=== PATIENT | female | born 1950 | race Caucasian/White ===

== ENCOUNTER → 2017-11-16 | Day surgery (SDC) | payer OTHER, BC ==
[2017-11-08 13:10] VITALS: BMI 51.0
[~2017-11-16] VITALS: Ht 167.6 cm; Wt 147.7 kg
[~2017-11-16] MED LIST: AMIT10TA6 PO; ATV/1 PO; FENTANYL CITRATE INJ 50 MCG/1 ML 2 ML VIAL ONE; KETAMINE HCL INJ 50 MG/ML 10 ML VIAL ONE; LIDOCAINE HCL 2% 2 ML VIAL (20MG/ML) ONE; LOSA50TA6 PO; LPT10 PO; MIDAZOLAM HCL 1 MG/ML 2ML VIAL ONE; ONDANSETRON INJ 2 MG/ML 2 ML VIAL IV PRN; PANT40TA PO; PROPOFOL IV EMULSION 10 MG/ML 20 ML VIAL IV ONE; TRAM-10 PO
[2017-11-16 10:07] VITALS: Ht 167.6 cm; Wt 147.7 kg
--- NOTE | 2017-11-16 10:50 | Endo History and Physical ---
History & Physical Date of Service: Nov 16, 2017. Chief Complaint: pain with swallowing at times, hx polyps Referring Physician: Dr. Correa History of Present Illness Patient for recurrent colonoscopy today for colon polyp surveillance. Also with some difficulty and occasional pain with swallowing. Past Surgical History Hx Cardiac Surgery: Yes (HEART CATH/NO STENTS) Hx Abdominal Surgery: Yes (2 C-SECTIONS, TUBAL LIGATION) Hx of Implantable Prosthesis: No Hx Post-Op Nausea and Vomiting: No Hx Cancer Surgery: No Hx Thoracic Surgery: No Hx Orthopedic: Yes (LEFT RCR) Hx Urinary Tract Surgery: No Family History None Social History Smoking Status: Never Smoker Hx Substance Use: No Hx Alcohol Use: No Allergies Coded Allergies: Penicillins (Verified Allergy, Intermediate, RASH, 11/16/17) Epinephrine (Verified Adverse Reaction, Intermediate, DIZZY, NAUSEA, ) Current Medications Reported Home Medications Medications Dose Route/Sig Max Daily Dose Days Date Category Elavil (Amitriptyline Hcl) 10 Mg Tab 10 Mg PO HS 11/08/17 Reported Ultram (Tramadol HCl) 50 Mg Tab 100 Mg PO HS 11/08/17 Reported Protonix (Pantoprazole Sodium) 40 Mg Tab 40 Mg PO QAM 11/08/17 Reported Ativan (Lorazepam) 1 Mg Tab 1 Mg PO QAM 11/08/17 Reported Lipitor (Atorvastatin Calcium) 10 Mg Tab 1 Tab PO QAM 11/08/17 Reported Cozaar (Losartan Potassium) 50 Mg Tab 50 Mg PO QAM 11/08/17 Reported Vital Signs Weight (Kilograms): 147.73 Height (Feet): 5 Height (Inches): 6 Date Time Temp Pulse Resp B/P (MAP) Pulse Ox O2 Delivery O2 Flow Rate FiO2 11/16/17 10:35 36.9 81 20 164/84 (110) 93 Room Air Physical Exam General Appearance: no apparent distress Respiratory/Chest: Auscultation: breath sounds normal Cardiovascular: Heart Auscultation: RRR Abdomen: Inspection & Palpation: soft Assessment and Plan Evaluation for colonoscopy due to a history of colon polyps. EGD for occasional solid food dysphagia / pain with swallowing. We have discussed the risks to include bleeding, infection, perforation, pain, and missed colon polyps.
--- NOTE | 2017-11-16 11:28 | GI REPORT ---
Procedure Date: 11/16/2017 10:49 AM Procedure: Upper GI endoscopy Indications: Dysphagia, Odynophagia Medicines: Monitored Anesthesia Care Complications: No immediate complications. Estimated blood loss: Minimal. Estimated Blood Loss: Estimated blood loss was minimal. Procedure: Pre-Anesthesia Assessment: - Prior to the procedure, a History and Physical was performed, and patient medications, allergies and sensitivities were reviewed. The patient's tolerance of previous anesthesia was reviewed. - The risks and benefits of the procedure and the sedation options and risks were discussed with the patient. All questions were answered and informed consent was obtained. - Patient identification and proposed procedure were verified prior to the procedure by the physician, the nurse and the grain elevator worker. The procedure was verified in the procedure room. - Pre-procedure physical examination revealed no contraindications to sedation. - ASA Grade Assessment: III - A patient with severe systemic disease. - After reviewing the risks and benefits, the patient was deemed in satisfactory condition to undergo the procedure. - The anesthesia plan was to use monitored anesthesia care (MAC). - Immediately prior to administration of medications, the patient was re-assessed for adequacy to receive sedatives. - The heart rate, respiratory rate, oxygen saturations, blood pressure, adequacy of pulmonary ventilation, and response to care were monitored throughout the procedure. - The physical status of the patient was re-assessed after the procedure. After obtaining informed consent, the endoscope was passed under direct vision. Throughout the procedure, the patient's blood pressure, pulse, and oxygen saturations were monitored continuously. The scope was introduced through the mouth, and advanced to the third part of duodenum. The upper GI endoscopy was accomplished without difficulty. The patient tolerated the procedure well. Findings: No endoscopic abnormality was evident in the esophagus to explain the patient's complaint of dysphagia. It was decided, however, to proceed with dilation of the entire esophagus. A guidewire was placed and the scope was withdrawn. Dilation was performed with a Savary dilator with no resistance at 54 Fr. The endoscope was then reinserted to evaluate the success of the procedure. Biopsies were taken with a cold forceps for histology. Estimated blood loss was minimal. The Z-line was regular and was found 38 cm from the incisors. Diffuse mild inflammation characterized by erythema and granularity was found in the entire examined stomach. Biopsies were taken with a cold forceps for histology. Estimated blood loss was minimal. The examined duodenum was normal. Impression: - No endoscopic esophageal abnormality to explain patient's dysphagia. Esophagus dilated. Dilated. Biopsied. - Z-line regular, 38 cm from the incisors. - Gastritis, likely medication related. Biopsied. - Normal examined duodenum. Recommendation: - Perform a colonoscopy today. - Await pathology results. Louann Jarvis D.O. Louann Jarvis, 11/16/2017 11:28:05 AM This report has been signed electronically. Note Initiated On: 11/16/2017 10:49 AM I attest to the content of the Intraoperative Record and orders documented therein, exceptions below
--- NOTE | 2017-11-16 11:30 | GI REPORT ---
Procedure Date: 11/16/2017 10:48 AM Procedure: Colonoscopy Indications: High risk colon cancer surveillance: Personal history of colonic polyps Medicines: Monitored Anesthesia Care Complications: No immediate complications. Estimated blood loss: Minimal. Estimated Blood Loss: Estimated blood loss was minimal. Procedure: Pre-Anesthesia Assessment: - Prior to the procedure, a History and Physical was performed, and patient medications, allergies and sensitivities were reviewed. The patient's tolerance of previous anesthesia was reviewed. - The risks and benefits of the procedure and the sedation options and risks were discussed with the patient. All questions were answered and informed consent was obtained. - Patient identification and proposed procedure were verified prior to the procedure by the physician, the nurse and the site technician. The procedure was verified in the procedure room. - Pre-procedure physical examination revealed no contraindications to sedation. - ASA Grade Assessment: III - A patient with severe systemic disease. - After reviewing the risks and benefits, the patient was deemed in satisfactory condition to undergo the procedure. - The anesthesia plan was to use monitored anesthesia care (MAC). - Immediately prior to administration of medications, the patient was re-assessed for adequacy to receive sedatives. - The heart rate, respiratory rate, oxygen saturations, blood pressure, adequacy of pulmonary ventilation, and response to care were monitored throughout the procedure. - The physical status of the patient was re-assessed after the procedure. After I obtained informed consent, the scope was passed under direct vision. Throughout the procedure, the patient's blood pressure, pulse, and oxygen saturations were monitored continuously. The scope was introduced through the anus and advanced to the terminal ileum. The colonoscopy was performed without difficulty. The patient tolerated the procedure well. The quality of the bowel preparation was good. Findings: The digital rectal exam findings include non-thrombosed external hemorrhoids. Pertinent negatives include normal sphincter tone. The terminal ileum appeared normal. A few small-mouthed diverticula were found in the sigmoid colon. Internal hemorrhoids were found during retroflexion. The hemorrhoids were mild. The exam was otherwise without abnormality. Impression: - Non-thrombosed external hemorrhoids found on digital rectal exam. - The examined portion of the ileum was normal. - Mild diverticulosis in the sigmoid colon. - Internal hemorrhoids. - The examination was otherwise normal. - No specimens collected. Recommendation: - Discharge patient to home (ambulatory). - Advance diet as tolerated today. - Repeat colonoscopy in 5 years for surveillance. - Return to GI office PRN. Carol Brown, 11/16/2017 11:30:03 AM This report has been signed electronically. Note Initiated On: 11/16/2017 10:48 AM I attest to the content of the Intraoperative Record and orders documented therein, exceptions below
--- NOTE | 2017-11-16 11:32 | Discharge Instructions ---
Endoscopy Patient Instructions Date / Procedure(s) Performed Nov 16, 2017. Colonoscopy, EGD Allergy Information Coded Allergies: Penicillins (Verified Allergy, Intermediate, RASH, 11/16/17) Epinephrine (Verified Adverse Reaction, Intermediate, DIZZY, NAUSEA, ) Discharge Date / Findings Nov 16, 2017. Mild gastritis (likely related to a medication) Normal appearing esophagus Internal and external hemorrhoids Mild diverticulosis of the sigmoid colon Medication Instructions Stopped Medication(s): none taken Medications Dose Route/Sig Max Daily Dose Days Date Category Elavil (Amitriptyline Hcl) 10 Mg Tab 10 Mg PO HS 11/08/17 Reported Ultram (Tramadol HCl) 50 Mg Tab 100 Mg PO HS 11/08/17 Reported Protonix (Pantoprazole Sodium) 40 Mg Tab 40 Mg PO QAM 11/08/17 Reported Ativan (Lorazepam) 1 Mg Tab 1 Mg PO QAM 11/08/17 Reported Lipitor (Atorvastatin Calcium) 10 Mg Tab 1 Tab PO QAM 11/08/17 Reported Cozaar (Losartan Potassium) 50 Mg Tab 50 Mg PO QAM 11/08/17 Reported Provider Instructions Activity Restrictions - No exercising or heavy lifting for 24 hours. - Do not drink alcohol the day of the procedure. - Do not drive a car or operate machinery until the day after the procedure. - Do not make any important decisions or sign important papers in 24 hours after the procedure. Following Day: - Return to full activity which may include returning to work/school. Diet Start your diet with liquids and light foods (jello, soup, juice, toast). Then eat your usual diet if not nauseated. Treatment For Common After Affects For mild abdominal pain, bloating, or excessive gas: - Rest - Eat lightly - Lie on right side Follow-Up Information Follow-up with Dr. Correa as scheduled if symptoms persist. Repeat colonoscopy in 5 years for screening Anesthesia Information What You Should Know You have had a procedure that required some medicine to reduce anxiety and discomfort. This treatment is called moderate sedation. After receiving the treatment, you may be sleepy, but you will be able to breathe on your own. The effects of the treatment may last for several hours. Follow these instructions along with Activity/Diet recommendations noted above: * Do NOT do anything where dizziness or clumsiness would be dangerous. * Rest quietly at home today, then you can be up and about tomorrow. * Have a responsible person stay with you the rest of today. * You may have had an I.V. today. If so, you may take the dressing off later today. Recommendations Call your doctor if: * Trouble breathing * Continuous vomiting for more than 24 hours * Temperature above 101 degrees * Severe abdominal pain or bloating * Pain not relieved by pain medicine ordered * There is increased drainage or redness from any incision * A large amount of rectal bleeding greater than 2-3 tablespoons. (If you had a polyp/s removed or have hemorrhoids, a small amount of blood - from the rectum is to be expected.) * You have any unanswered questions or concerns. IN THE EVENT OF A SERIOUS EMERGENCY, GO TO THE NEAREST EMERGENCY ROOM Your discharge instructions were prepared by provider Louann Jarvis. Patient Instructions Signature Page Tameka Becerra Patient (or Guardian) Signature/Date: I have read and understand the instructions given to me by my caregivers. Caregiver/RN/Doctor Signature/Date: The above-named patient and/or guardian has received patient instructions on this date. + Original Patient Signature Page (only) stays with chart. Please make copy for patient.
[2017-11-16 12:01] VITALS: BP 132/74; PULSE 58; O2SAT 97
--- NOTE | 2017-11-16 13:01 | Anesthesiology Progress Note ---
Anesthesia Post Op Note Date & Time Nov 16, 2017 at 13:01 Vital Signs Pain Intensity: 0 Vital Signs Past 12 Hours Date Time Temp Pulse Resp B/P (MAP) Pulse Ox O2 Delivery O2 Flow Rate FiO2 11/16/17 12:01 58 20 132/74 (93) 97 Room Air 11/16/17 11:45 57 20 135/72 (93) 97 Room Air 11/16/17 11:30 36.4 63 20 122/62 (82) 97 Room Air 11/16/17 10:35 36.9 81 20 164/84 (110) 93 Room Air Notes Mental Status: alert / awake / arousable, participated in evaluation Pt Amnestic to Procedure: Yes Nausea / Vomiting: adequately controlled Pain: adequately controlled Airway Patency, RR, SpO2: stable & adequate BP & HR: stable & adequate Hydration State: stable & adequate Anesthetic Complications: no major complications apparent
== END | disposition home or self-care (01) ==
LOC: C.GI 09:39
PROVIDERS: ATTEND Internal Medicine Gastroenterology
DX: Z12.11 Encounter for screening for malignant neoplasm of colon (principal); Z86.010 Personal history of colon polyps; K64.4 Residual hemorrhoidal skin tags; K64.8 Other hemorrhoids; K57.30 Diverticulosis of large intestine without perforation or abscess without bleeding; R13.10 Dysphagia, unspecified; K29.70 Gastritis, unspecified, without bleeding; Z98.51 Tubal ligation status; Z88.0 Allergy status to penicillin; Z88.8 Allergy status to other drugs, medicaments and biological substances; Z79.899 Other long term (current) drug therapy
CPT/HCPCS: 43239; 43248; G0105